=== PATIENT | male | born 1975 | race Caucasian/White ===

== ENCOUNTER 2023-08-29 20:14 | Emergency (ER) | payer BC ==
[~2023-08-29] VITALS: Ht 175.2 cm; Wt 74.8 kg
[2023-08-29] MEDS ORDERED: CEPHALEXIN500 M1 PO (21:04)
== END 2023-08-29 21:34 | disposition home or self-care (01) ==
LOC: ED 20:14
DX: S61.512A Laceration without foreign body of left wrist, initial encounter (principal); Z88.1 Allergy status to other antibiotic agents; W27.0XXA Contact with workbench tool, initial encounter; Y93.89 Activity, other specified; Y92.89 Other specified places as the place of occurrence of the external cause; Y99.8 Other external cause status